=== PATIENT | male | born 1990 | race Caucasian/White ===

== ENCOUNTER 2021-09-15 16:31 | Emergency (ER) | payer OTHER ==
[~2021-09-15] VITALS: Ht 170.2 cm; Wt 90.7 kg
[2021-09-15 16:47] VITALS: BP 133/83
[2021-09-15] MEDS ORDERED: PROM118S5 PO (17:35)
[2021-09-15] MEDS ORDERED: ACET-10509 PO (17:35)
[2021-09-15 17:57] VITALS: BP 133/83
--- NOTE | 2021-09-15 17:57 | NUR ---
Pt assessed by VERONIKA Givens, no nursing interventions performed
--- NOTE | 2021-09-15 17:57 | NUR ---
dPatient discharged with v/s stable. Written and verbal after care instructions given and explained. Patient alert, oriented and verbalized understanding of instructions. Ambulatory with steady gait. All questions addressed prior to discharge. ID band removed. Patient advised to follow up with PMD. Rx of tylenol extra strength and promethazine dm syrup given. Patient educated on indication of medication including possible reaction and side effects. Opportunity to ask questions provided and answered.
== END 2021-09-15 17:57 | disposition home or self-care (01) ==
LOC: MED 16:31
DX: J06.9 Acute upper respiratory infection, unspecified (principal); Z79.899 Other long term (current) drug therapy; Z88.0 Allergy status to penicillin
CPT/HCPCS: 99283